=== PATIENT | female | born 1950 | race Caucasian/White ===

== ENCOUNTER 2016-10-08 17:33 | Observation (INO) | payer OTHER ==
[~2016-10-08] VITALS: Ht 162.6 cm; Wt 69.0 kg
[2016-10-08] VITALS (9 sets, daily range): BP systolic 150–186; BP diastolic 69–99; PULSE 70–78; RESP 16–20; TEMP 98–98.6; O2SAT 96–99
[~2016-10-08 17:33] MED LIST: CARV12.5 PO; DUONI NEB; ECASA PO; HYCO5UDC PO; NITR.4 SL; ZOCO40TA PO
[2016-10-08] MEDS ORDERED: SODIUM CHLORIDE 0.9% FLUSH 5 ML FLUSH IVF PRN ×2 (18:00→21:00)
[2016-10-08] MEDS ORDERED: ATOR40TA16 PO (18:02)
[2016-10-08] MEDS ORDERED: PATI1POW PO (18:02)
[2016-10-08] MEDS ORDERED: ALBU0.08 NEB (18:02)
[2016-10-08] MEDS ORDERED: CARV25TA PO (18:02)
[2016-10-08] MEDS ORDERED: CALC0.25 PO (18:02)
[2016-10-08] MEDS ORDERED: ASPI325T PO (18:02)
--- NOTE | 2016-10-08 18:39 | PD ---
HPI Chief Complaint: Neuro Symptoms/ Deficits Time Seen by Provider: 17:49 Travel History International Travel<30 days: No Contact w/Intl Traveler<30days: No Traveled to known affect area: No History of Present Illness HPI 66-year-old female with history of CAD, chronic renal insufficiency, COPD, osteoarthritis, hypertension, cardiomyopathy, here for evaluation of left arm and right leg weakness/numbness 2 days. The patient was started on a new medication for hyperkalemia. She believes her symptoms are secondary to this medication which she started 2 days ago. The patient is also describing pain in her left shoulder as well as right leg which is constant, moderate, worse with movement and palpation. She denies trauma. No fevers or chills. No chest pain or dyspnea. PFSH Past Medical History Hx Anticoagulant Therapy: Yes (325MG ASA) Arthritis: Yes Autoimmune Disease: No Cancer: No Cardiovascular Problems: Yes (HTN; LOGAN 2013) High Cholesterol: Yes Chemotherapy: No Congestive Heart Failure: Yes COPD: Yes Diminished Hearing: No Endocrine: No Genitourinary: Yes (kidney failure stage 4) Hypertension: Yes Immune Disorder: No Musculoskeletal: Yes Neurologic: No Psychiatric: No Reproductive: No Respiratory: Yes (COPD) Immunizations Current: Yes Myocardial Infarction: Yes (december 30, 2014) Radiation Therapy: No Renal Failure: Yes Tetanus Vaccination: Unknown Influenza Vaccination: Yes ?: Not Menopausal: Yes : 3 Para: 3 Ovarian Cysts: Yes Past Surgical History Gynecologic Surgery: Yes (OVARIES REMOVED) Other Surgery: Yes Social History Alcohol Use: No Tobacco Use: Yes (09/26 ppd) Substance Use: No Allergies-Medications (Allergen,Severity, Reaction): Coded Allergies: No Known Allergies (Verified , 10/08/16) Reported Meds & Prescriptions Reported Meds & Active Scripts Active Reported Albuterol Neb (Albuterol Sulfate) 2.5 Mg/3 Ml Neb 2.5 Mg NEB QID NEB Aspirin 325 Mg Tab 325 Mg PO DAILY Calcitriol 0.25 Mcg Cap 0.25 Mcg PO DAILY Atorvastatin (Atorvastatin Calcium) 40 Mg Tab 40 Mg PO HS Carvedilol 25 Mg Tab 25 Mg PO BID Veltassa (Patiromer Sorbitex Calcium) 8.4 Gm Pow 8.4 Mg PO WEEKLY Review of Systems Except as stated in HPI: all other systems reviewed are Neg Physical Exam Narrative GENERAL: Well-developed, well-nourished, elderly-appearing female, awake, alert , no acute distress. SKIN: Warm and dry. No rashes. HEAD: Atraumatic. Normocephalic. EYES: Pupils equal and round. No scleral icterus. No injection or drainage. ENT: Mucous membranes pink and dry. NECK: Trachea midline. No JVD. No nuchal rigidity. No midline vertebral step- off or tenderness. CARDIOVASCULAR: Regular rate and rhythm. RESPIRATORY: No accessory muscle use. Clear to auscultation. Breath sounds equal bilaterally. GASTROINTESTINAL: Abdomen soft, non-tender, nondistended. MUSCULOSKELETAL: No obvious deformities. No clubbing. No cyanosis. No edema. Moderate tenderness to left shoulder without warmth or erythema. There is also tenderness to the right knee and right hip without warmth or erythema. Normal range of passive motion in all joints and extremities, limited range of active motion in left shoulder and right hip/right knee secondary to pain/weakness. No midline vertebral step-off or tenderness. NEUROLOGICAL: Awake and alert. No obvious cranial nerve deficits. Normal speech. Significant weakness in left arm and right leg. Normal muscle strength in her right arm and right leg. PSYCHIATRIC: Appropriate mood and affect; insight and judgment normal. Data Data Last Documented VS Vital Signs Date Time Temp Pulse Resp B/P Pulse Ox O2 Delivery O2 Flow Rate FiO2 10/08/16 19:01 74 20 160/73 99 Room Air 10/08/16 17:39 98.6 Orders Electrocardiogram (10/08/16 17:54) Prothrombin Time / Inr (Pt) (10/08/16 17:54) Act Partial Throm Time (Ptt) (10/08/16 17:54) Complete Blood Count With Diff (10/08/16 17:54) Comprehensive Metabolic Panel (10/08/16 17:54) Creatine Kinase (Cpk) (10/08/16 17:54) Troponin I (10/08/16 17:54) Ct Brain W/O Iv Contrast(Rout) (10/08/16 17:54) Ecg Monitoring (10/08/16 17:54) Iv Access Insert/Monitor (10/08/16 17:54) Oximetry (10/08/16 17:54) Sodium Chloride 0.9% Flush (Ns Flush) (10/08/16 18:00) Shoulder, Complete (>2vws) (10/08/16 ) Hip, Uni(Ap&Lat) W Ap Pelvis (10/08/16 ) Knee, Complete (4vws) (10/08/16 ) Labs Laboratory Tests Test 10/08/16 18:35 White Blood Count 5.7 TH/MM3 Red Blood Count 3.22 MIL/MM3 Hemoglobin 10.0 GM/DL Hematocrit 29.4 % Mean Corpuscular Volume 91.3 FL Mean Corpuscular Hemoglobin 31.0 PG Mean Corpuscular Hemoglobin 33.9 % Concent Red Cell Distribution Width 11.7 % Platelet Count 282 TH/MM3 Mean Platelet Volume 6.9 FL Neutrophils (%) (Auto) 61.7 % Lymphocytes (%) (Auto) 25.2 % Monocytes (%) (Auto) 9.0 % Eosinophils (%) (Auto) 3.7 % Basophils (%) (Auto) 0.4 % Neutrophils # (Auto) 3.6 TH/MM3 Lymphocytes # (Auto) 1.4 TH/MM3 Monocytes # (Auto) 0.5 TH/MM3 Eosinophils # (Auto) 0.2 TH/MM3 Basophils # (Auto) 0.0 TH/MM3 CBC Comment DIFF FINAL Differential Comment Prothrombin Time 9.7 SEC Prothromb Time International 0.9 RATIO Ratio Activated Partial 25.6 SEC Thromboplast Time Sodium Level 137 MEQ/L Potassium Level 4.8 MEQ/L Chloride Level 105 MEQ/L Carbon Dioxide Level 21.9 MEQ/L Anion Gap 10 MEQ/L Blood Urea Nitrogen 42 MG/DL Creatinine 3.00 MG/DL Estimat Glomerular Filtration 16 ML/MIN Rate Random Glucose 100 MG/DL Calcium Level 8.0 MG/DL Total Bilirubin 0.3 MG/DL Aspartate Amino Transf 21 U/L (AST/SGOT) Alanine Aminotransferase 20 U/L (ALT/SGPT) Alkaline Phosphatase 171 U/L Total Creatine Kinase 101 U/L Troponin I LESS THAN 0.02 NG/ML Total Protein 7.6 GM/DL Albumin 3.2 GM/DL MDM Medical Decision Making Medical Screen Exam Complete: Yes Emergency Medical Condition: Yes Medical Record Reviewed: Yes Interpretation(s) EKG: Sinus, rate 72, left axis deviation, LBBB which is old Differential Diagnosis CVA, MS, electrolyte abnormality, osteoarthritis, septic arthritis not likely Narrative Course At approximately 7:00 PM at the end of my shift the patient was signed out to oncoming provider who will follow up with imaging studies and will disposition the patient. Toro Canada MD Oct 08, 2016 18:39
[2016-10-08 18:40] LABS: AUTOMATED NEUTROPHIL # 3.6 TH/MM3 (1.8-7.7); BASOPHIL % 0.4 % (0.0-2.0); EOSINOPHIL # 0.2 TH/MM3 (0-0.4); EOSINOPHIL % 3.7 % (0.0-4.0); HEMATOCRIT 29.4 % (35.0-46.0); HEMO FLAGS DIFF FINAL; LYMPH % 25.2 % (9.0-44.0); LYMPHOCYTE # 1.4 TH/MM3 (1.0-4.8); MEAN CELL VOLUME 91.3 FL (80.0-100.0); MEAN CORPUSCULAR HGB CONC 33.9 % (32.0-36.0); NEUT % 61.7 % (16.0-70.0); PLATELET COUNT 282 TH/MM3 (150-450); RED BLOOD COUNT 3.22 MIL/MM3 (4.00-5.30); RED CELL DISTRIBUTION WIDTH 11.7 % (11.6-17.2); WHITE BLOOD COUNT 5.7 TH/MM3 (4.0-11.0)
[2016-10-08 18:48] LABS: CHLORIDE 105 MEQ/L (98-107); POTASSIUM 4.8 MEQ/L (3.5-5.1); SODIUM (NA) 137 MEQ/L (136-145)
[2016-10-08 18:52] LABS: ANION GAP 10 MEQ/L (5-15); BICARBONATE 21.9 MEQ/L (21.0-32.0); BLOOD UREA NITROGEN 42 MG/DL (7-18)
[2016-10-08 18:53] LABS: APTT (PATIENT) 25.6 SEC (24.3-30.1); INTERNATIONAL NORMALIZED RATIO 0.9 RATIO; PROTHROMBIN TIME - PATIENT 9.7 SEC (9.8-11.6)
[2016-10-08 18:55] LABS: ALT (GPT) 20 U/L (10-53); AST (GOT) 21 U/L (15-37); GLOMERULAR FILTRATION RATE 16 ML/MIN (>89)
[2016-10-08 18:56] LABS: TOTAL BILIRUBIN ADULT 0.3 MG/DL (0.2-1.0)
[2016-10-08 18:58] LABS: ALKALINE PHOSPHATASE 171 U/L (45-117); CREATINE KINASE 101 U/L (26-192)
--- NOTE | 2016-10-08 18:58 | RADHPO ---
EXAM DATE/TIME: 10/08/2016 18:04 [facility] COMPARISON: No previous studies available for comparison. INDICATIONS : Right knee pain for two days. No known trauma. MEDICAL HISTORY : Venous insufficiency. SURGICAL HISTORY : None. ENCOUNTER: Initial ACUITY: 2 days PAIN SCORE: 5/10 LOCATION: Right knee. FINDINGS: There are degenerative changes evident with loss of articular cartilage in both the medial and latera l compartment. There is no evidence of joint effusion. Alignment is anatomic. A fracture is not ap preciated. CONCLUSION: Degenerative change without fracture. Breezy Corrigan MD FACR on October 08, 2016 at 18:39 Board Certified Radiologist. This report was verified electronically.
--- NOTE | 2016-10-08 19:00 | RADHPO ---
EXAM DATE/TIME: 10/08/2016 18:05 [facility] COMPARISON: No previous studies available for comparison. INDICATIONS : Right hip pain for two days. No known trauma. MEDICAL HISTORY : None. SURGICAL HISTORY : None. ENCOUNTER: Initial ACUITY: 2 days PAIN SCORE: 5/10 LOCATION: Right hip. FINDINGS: Examination of the right hip was performed with AP Pelvis. The primary and secondary trabecular christ kwabena of the femoral neck is intact. The hip joint is of normal width without significant sclerosis or bony hypertrophy. The acetabulum is grossly intact. CONCLUSION: Negative for fracture or dislocation. Followup in 7-10 days is suggested if symptoms persist.. Breezy Corrigan MD FACR on October 08, 2016 at 18:56 Board Certified Radiologist. This report was verified electronically.
--- NOTE | 2016-10-08 19:05 | RADHPO ---
EXAM DATE/TIME: 10/08/2016 18:10 [facility] COMPARISON: No previous studies available for comparison. INDICATIONS : Left shoulder pain for two days. No known trauma. MEDICAL HISTORY : None. SURGICAL HISTORY : None. ENCOUNTER: Initial ACUITY: 2 days PAIN SCORE: 8/10 LOCATION: Left shoulder. FINDINGS: Multiple view examination of the left shoulder demonstrates no evidence of fracture or dislocation. The glenohumeral and acromioclavicular joints are maintained. There is normal range of motion betwee n internal and external rotation. Bony mineralization is normal. CONCLUSION: Negative for fracture or dislocation. Followup in 7-10 days is suggested if symptoms persist. Breezy Corrigan MD FACR on October 08, 2016 at 18:59 Board Certified Radiologist. This report was verified electronically.
--- NOTE | 2016-10-08 19:28 | PD ---
Physical Exam Date Seen by Provider: Oct 08, 2016 Time Seen by Provider: 19:27 Narrative accepted in transfer of care from Dr Canada Data Data Last Documented VS Vital Signs Date Time Temp Pulse Resp B/P Pulse Ox O2 Delivery O2 Flow Rate FiO2 10/08/16 21:04 74 20 186/79 98 Room Air 10/08/16 17:39 98.6 Orders Electrocardiogram (10/08/16 17:54) Prothrombin Time / Inr (Pt) (10/08/16 17:54) Act Partial Throm Time (Ptt) (10/08/16 17:54) Complete Blood Count With Diff (10/08/16 17:54) Comprehensive Metabolic Panel (10/08/16 17:54) Creatine Kinase (Cpk) (10/08/16 17:54) Troponin I (10/08/16 17:54) Ct Brain W/O Iv Contrast(Rout) (10/08/16 17:54) Ecg Monitoring (10/08/16 17:54) Iv Access Insert/Monitor (10/08/16 17:54) Oximetry (10/08/16 17:54) Sodium Chloride 0.9% Flush (Ns Flush) (10/08/16 18:00) Shoulder, Complete (>2vws) (10/08/16 ) Hip, Uni(Ap&Lat) W Ap Pelvis (10/08/16 ) Knee, Complete (4vws) (10/08/16 ) Westergren Sedimentation Rate (10/08/16 20:44) Magnesium (Mg) (10/08/16 18:35) Admit Order (Ed Use Only) (10/08/16 ) ^ Saline Lock (10/08/16 20:57) Resp Oxygen [place] C Titrat 1-4 L (10/08/16 ) ^ Notify Dr: Other (10/08/16 20:57) Sodium Chloride 0.9% Flush (Ns Flush) (10/08/16 21:00) Sodium Chloride 0.9% Flush (Ns Flush) (10/08/16 21:00) Carvedilol (Coreg) (10/08/16 21:00) Labs Laboratory Tests Test 10/08/16 10/08/16 18:35 21:10 White Blood Count 5.7 TH/MM3 Red Blood Count 3.22 MIL/MM3 Hemoglobin 10.0 GM/DL Hematocrit 29.4 % Mean Corpuscular Volume 91.3 FL Mean Corpuscular Hemoglobin 31.0 PG Mean Corpuscular Hemoglobin 33.9 % Concent Red Cell Distribution Width 11.7 % Platelet Count 282 TH/MM3 Mean Platelet Volume 6.9 FL Neutrophils (%) (Auto) 61.7 % Lymphocytes (%) (Auto) 25.2 % Monocytes (%) (Auto) 9.0 % Eosinophils (%) (Auto) 3.7 % Basophils (%) (Auto) 0.4 % Neutrophils # (Auto) 3.6 TH/MM3 Lymphocytes # (Auto) 1.4 TH/MM3 Monocytes # (Auto) 0.5 TH/MM3 Eosinophils # (Auto) 0.2 TH/MM3 Basophils # (Auto) 0.0 TH/MM3 CBC Comment DIFF FINAL Differential Comment Erythrocyte Sedimentation Rate 69 mm/hr Prothrombin Time 9.7 SEC Prothromb Time International 0.9 RATIO Ratio Activated Partial 25.6 SEC Thromboplast Time Sodium Level 137 MEQ/L Potassium Level 4.8 MEQ/L Chloride Level 105 MEQ/L Carbon Dioxide Level 21.9 MEQ/L Anion Gap 10 MEQ/L Blood Urea Nitrogen 42 MG/DL Creatinine 3.00 MG/DL Estimat Glomerular Filtration 16 ML/MIN Rate Random Glucose 100 MG/DL Calcium Level 8.0 MG/DL Magnesium Level 2.5 MG/DL Total Bilirubin 0.3 MG/DL Aspartate Amino Transf 21 U/L (AST/SGOT) Alanine Aminotransferase 20 U/L (ALT/SGPT) Alkaline Phosphatase 171 U/L Total Creatine Kinase 101 U/L Troponin I LESS THAN 0.02 NG/ML Total Protein 7.6 GM/DL Albumin 3.2 GM/DL Urine Collection Type CLEAN CATCH Urine Color STRAW Urine Turbidity CLEAR Urine pH 6.0 Urine Specific [place] 1.007 Urine Protein NEG mg/dL Urine Glucose (UA) NEG mg/dL Urine Ketones NEG mg/dL Urine Occult Blood TRACE Urine Nitrite NEG Urine Bilirubin NEG Urine Leukocyte Esterase SMALL Urine WBC 3-5 /hpf Urine Squamous Epithelial 6-8 /hpf Cells Microscopic Urinalysis Comment CULT NOT INDICATED MDM Medical Record Reviewed: Yes Supervised Visit with MARISSA: No Differential Diagnosis accepted in transfer of care from Dr Canada; please refer to his dictation Narrative Course accepted in transfer of care from Dr Canada for pending Ct and patient disposition patient with 2-3 days of migratory pain and proximal upper and lower extremity weakness after beginning reportedly a new medication. Patient took one dose and started noticing symptoms has taken no further medical dictation and lab values here are identified to be grossly within normal range. Imaging study pending. At 8:34 PM on imaging studies and labs are resulted; no acute abnormalities identified; patient with chronic anemia and chronic renal insufficiency/chronic kidney disease that essentially unchanged from 03/07/16. Patient is here with migratory pain and weakness and paresthesias reportedly onset since starting new medication, Veltassa, prescribed by her provider with first dose being taken on Monday and symptoms reportedly beginning on . At 8:43 PM patient noticing some improvement of symptoms although still having pain in the left shoulder and right hip; consider polymyalgia rheumatica, myositis, atypical bursitis/synovitis, ms. Additional labs sed rate, ck, mag pendnig discussed with [facility] MD Physician Communication Physician Communication call placed to [facility] MD Dr Pineda--aware of recently added labs pending Diagnosis Primary Impression: Migratory pain Admitting Information Admitting Physician Requests: Observation Tanya Cooper MD Oct 08, 2016 19:28
--- NOTE | 2016-10-08 19:39 | RADHPO ---
EXAM DATE/TIME: 10/08/2016 19:19 [facility] COMPARISON: No previous studies available for comparison. INDICATIONS : Left arm weakness today. RADIATION DOSE: 59.45 CTDIvol (mGy) MEDICAL HISTORY : Myocardial infarction. Congestive heart failure. Hypertension. SURGICAL HISTORY : None. ENCOUNTER: Initial ACUITY: 1 day PAIN SCALE: 0/10 LOCATION: Bilateral head TECHNIQUE: Multiple contiguous axial images were obtained of the head. Using automated exposure control and adj ustment of the mA and/or kV according to patient size, radiation dose was kept as low as reasonably a chievable to obtain optimal diagnostic quality images. FINDINGS: CEREBRUM: The ventricles are normal for age. No evidence of midline shift, mass lesion, hemorrhage or acute in farction. No extra-axial fluid collections are seen. POSTERIOR FOSSA: The cerebellum and brainstem are intact. The 4th ventricle is midline. The cerebellopontine angle i s unremarkable. EXTRACRANIAL: The visualized portion of the orbits is intact. SKULL: The calvaria is intact. No evidence of skull fracture. CONCLUSION: Negative for acute process. Breezy Corrigan MD FACR on October 08, 2016 at 19:36 Board Certified Radiologist. This report was verified electronically.
[2016-10-08] MEDS ORDERED: SODIUM CHLORIDE 0.9% FLUSH 5 ML FLUSH IVF SCH (21:00)
[2016-10-08] MEDS ORDERED: CARVEDILOL 12.5 MG TAB PO ONE (21:00)
[2016-10-08 21:02] LABS: MAGNESIUM 2.5 MG/DL (1.5-2.5)
[2016-10-08] MEDS ORDERED: ACETAMINOPHEN/HYDROcodone 325 MG/7.5 MG TAB PO PRN (21:30)
[2016-10-08] MEDS ORDERED: ONDANSETRON HCL 4 MG/2 ML VIAL IVP PRN (21:30)
[2016-10-08] MEDS ORDERED: BISACODYL 10 MG SUPP PR PRN (21:30)
[2016-10-08] MEDS ORDERED: SODIUM CHLORIDE 0.9% FLUSH 5 ML FLUSH FLUSH PRN (21:30)
[2016-10-08] MEDS ORDERED: ACETAMINOPHEN 325 MG TAB PO PRN (21:30)
[2016-10-08] MEDS ORDERED: ACETAMINOPHEN/HYDROcodone 325 MG/5 MG TAB PO PRN (21:30)
[2016-10-08 21:37] LABS: BLOOD, URINE TRACE (NEG); GLUCOSE,URINE NEG (NEG); KETONE, URINE NEG (NEG); NITRITE,URINE NEG (NEG)
[2016-10-08 21:44] LABS: METHOD OF COLLECTION CLEAN CATCH; URINE COLOR STRAW (YELLW/STRAW)
[2016-10-08 21:46] LABS: COMMENT (UR) CULT NOT INDICATED; CULTURE IF INDICATED CULT NOT INDICATED
[2016-10-08] MEDS: SODIUM CHLOR 0.9% 1000 ML INJ 1,000 ML IV SCH (22:53)
[2016-10-09 01:18] VITALS: BP 157/69; PULSE 71; RESP 20; TEMP 97.7; O2SAT 96
[2016-10-09 05:02] VITALS: BP 167/88; PULSE 70; RESP 14; TEMP 98; O2SAT 94
[2016-10-09 07:59] LABS: AUTOMATED NEUTROPHIL # 2.3 TH/MM3 (1.8-7.7); BASOPHIL % 0.3 % (0.0-2.0); EOSINOPHIL # 0.2 TH/MM3 (0-0.4); HEMATOCRIT 27.3 % (35.0-46.0); HEMO FLAGS DIFF FINAL; LYMPH % 27.9 % (9.0-44.0); LYMPHOCYTE # 1.1 TH/MM3 (1.0-4.8); MEAN CELL VOLUME 92.3 FL (80.0-100.0); MEAN CORPUSCULAR HEMOGLOBIN 30.7 PG (27.0-34.0); MEAN CORPUSCULAR HGB CONC 33.3 % (32.0-36.0); MONO % 11.5 % (0.0-8.0); NEUT % 56.3 % (16.0-70.0); PLATELET COUNT 225 TH/MM3 (150-450); RED BLOOD COUNT 2.96 MIL/MM3 (4.00-5.30); RED CELL DISTRIBUTION WIDTH 11.8 % (11.6-17.2); WHITE BLOOD COUNT 4.1 TH/MM3 (4.0-11.0)
[2016-10-09 08:00] VITALS: BP 168/82; PULSE 70; RESP 18; TEMP 96.8; O2SAT 95
[2016-10-09 08:03] LABS: CHLORIDE 110 MEQ/L (98-107); POTASSIUM 4.7 MEQ/L (3.5-5.1); SODIUM (NA) 140 MEQ/L (136-145)
[2016-10-09 08:06] LABS: ANION GAP 9 MEQ/L (5-15); BICARBONATE 21.2 MEQ/L (21.0-32.0); BLOOD UREA NITROGEN 40 MG/DL (7-18)
[2016-10-09] MEDS: SODIUM CHLOR 0.9% 1000 ML INJ 1,000 ML IV SCH (08:08)
[2016-10-09 08:09] LABS: ALT (GPT) 18 U/L (10-53)
[2016-10-09 08:10] LABS: AST (GOT) 15 U/L (15-37); GLOMERULAR FILTRATION RATE 18 ML/MIN (>89)
[2016-10-09 08:11] LABS: TOTAL BILIRUBIN ADULT 0.4 MG/DL (0.2-1.0)
[2016-10-09 08:12] LABS: ALKALINE PHOSPHATASE 143 U/L (45-117)
[2016-10-09] MEDS ORDERED: ASPIRIN 325 MG TAB PO SCH (09:00)
[2016-10-09] MEDS ORDERED: CARVEDILOL 12.5 MG TAB PO SCH (09:00)
[2016-10-09] MEDS ORDERED: SODIUM CHLORIDE 0.9% FLUSH 5 ML FLUSH FLUSH SCH (09:00)
[2016-10-09 12:00] VITALS: BP 157/70; PULSE 72; RESP 18; TEMP 97; O2SAT 97
--- NOTE | 2016-10-09 13:36 | EKG ---
Date Performed: 10/08/2016 Time Performed: 18:18:04 PTAGE: 66 years EKG: Sinus rhythm Left axis deviation Left bundle branch block Compared to prior tracing no significant change Abnorma l ECG PREVIOUS TRACING : 03/07/2016 16.18 DOCTOR: Gianfranco Shah Interpretating Date/Time 10/09/2016 13:34:50
--- NOTE | 2016-10-09 15:24 | HHI.DCPOC ---
Discharge Care Plan Diagnosis: (1) Neurologic abnormality Goals to Promote Your Health * To prevent worsening of your condition and complications * To maintain your health at the optimal level Directions to Meet Your Goals Take your medications as prescribed Follow your dietary instruction Follow activity as directed Keep your appointments as scheduled Take your immunizations and boosters as scheduled If your symptoms worsen call your PCP, if no PCP go to Urgent Care Center or Emergency Room Smoking is Dangerous to Your Health. Avoid second hand smoke Call the 24-hour hour crisis hotline for domestic abuse at Lisa Bates MD Oct 09, 2016 15:24
--- NOTE | 2016-10-09 15:29 | HHI.HP ---
[facility] Service [facility] Primary Care Physician Unknown Admission Diagnosis migratory weakness Diagnoses: Chief Complaint: Paresthesias Travel History International Travel<30 Days: No Contact w/Intl Traveler <30 Da: No Traveled to Known Affected Are: No History of Present Illness Patient is a 66-year-old female with a history of chronic disease and hypertension. Patient had recent start of potassium medication per her report and noted that she started having numbness and tickling in her arms and legs. It started about 4 days ago and seemed to not subside so she came to the emergency room for further evaluation. Here her lecture lites are normal. Symptoms have actually resolved since she discontinued her medication. She does have no fevers or chills or pain complaint. She was seen by physical therapy and recommended for home health care due to some evidence of right leg weakness however the patient does not want to continue with home healthcare one to follow-up with her primary care doctor. Images here reviewed by me include hip shoulder and knee which not show any acute processes. CT of the brain was done without any acute intracranial disease. Patient with a family history of stroke but no personal signs and symptoms are consistent with stroke at this time. Patient will be discharged home to follow-up with her primary care physician Review of Systems Constitutional: DENIES: Diaphoretic episodes, Fatigue, Fever, Weight gain, Weight loss, Chills, Dizziness, Change in appetite, Night Sweats Endocrine: DENIES: Abnorml menstrual pattern, Heat/cold intolerance, Polydipsia , Polyuria, Polyphagia Eyes: DENIES: Blurred vision, Diplopia, Eye inflammation, Eye pain, Vision loss , Photosensitivity, Double Vision Ears, nose, mouth, throat: DENIES: Tinnitus, Hearing loss, Vertigo, Nasal discharge, Oral lesions, Throat pain, Hoarseness, Ear Pain, Running Nose, Epistaxis, Sinus Pain, Toothache, Odynophagia Respiratory: DENIES: Apneas, Cough, Snoring, Wheezing, Hemoptysis, Sputum production, Shortness of breath Cardiovascular: DENIES: Chest pain, Palpitations, Syncope, Dyspnea on Exertion , PND, Lower Extremity Edema, Orthopnea, Claudication Genitourinary: DENIES: Abnormal vaginal bleeding, Dysmenorrhea, Dyspareunia, Sexual dysfunction, Urinary frequency, Urinary incontinence, Urgency, Hematuria , Dysuria, Nocturia, Vaginal discharge Musculoskeletal: DENIES: Joint pain, Muscle aches, Stiffness, Joint Swelling, Back pain, Neck pain Integumentary: DENIES: Abnormal pigmentation, Pruritus, Rash, Nail changes, Breast masses, Breast skin changes, Nipple discharge Hematologic/lymphatic: DENIES: Bruising, Lymphadenopathy Immunologic/allergic: DENIES: Eczema, Urticaria Neurologic: COMPLAINS OF: Paresthesias, DENIES: Abnormal gait, Headache, Localized weakness, Seizures, Speech Problems, Tremor, Poor Balance Psychiatric: DENIES: Anxiety, Confusion, Mood changes, Depression, Hallucinations, Agitation, Suicidal Ideation, Homicidal Ideation, Delusions Past Family Social History Past Medical History Chronic kidney disease stage IV Hypertension Tobacco dependency Hyperlipidemia Hypertension COPD Past Surgical History Tubal ligation Reported Medications Reviewed in the medical record, new potassium medication per patient which she discontinued after her symptoms started Allergies: Coded Allergies: No Known Allergies (Verified , 10/08/16) Active Ordered Medications Reviewed in the medical record Family History Sister had a stroke Hasn't had a stroke Social History Smokes half a pack of tobacco daily, lives independently Physical Exam Vital Signs Vital Signs Date Time Temp Pulse Resp B/P Pulse Ox O2 Delivery O2 Flow Rate FiO2 10/09/16 12:00 97.0 72 18 157/70 97 10/09/16 08:00 96.8 70 18 168/82 95 10/09/16 08:00 95 21 10/09/16 05:02 98.0 70 14 167/88 94 10/09/16 01:18 97.7 71 20 157/69 96 10/08/16 23:40 70 10/08/16 23:34 98.0 78 19 170/83 97 10/08/16 22:34 98 21 10/08/16 22:19 72 20 150/69 96 Room Air 10/08/16 21:04 74 20 186/79 98 Room Air 10/08/16 21:00 74 20 186/79 98 Room Air 10/08/16 19:01 74 20 160/73 99 Room Air 10/08/16 18:54 98 Room Air 10/08/16 18:36 20 10/08/16 17:39 98.6 78 16 168/99 98 Physical Exam GENERAL: This is a well-nourished, well-developed patient, in no apparent distress. SKIN: No rashes, ecchymoses or lesions. Cool and dry. HEAD: Atraumatic. Normocephalic. No temporal or scalp tenderness. EYES: Pupils equal round and reactive. Extraocular motions intact. No scleral icterus. No injection or drainage. ENT: Nose without bleeding, purulent drainage or septal hematoma. Throat without erythema, tonsillar hypertrophy or exudate. Uvula midline. Airway patent. NECK: Trachea midline. No JVD or lymphadenopathy. Supple, nontender, no meningeal signs. CARDIOVASCULAR: Regular rate and rhythm without murmurs, gallops, or rubs. RESPIRATORY: Clear to auscultation. Breath sounds equal bilaterally. No wheezes , rales, or rhonchi. GASTROINTESTINAL: Abdomen soft, non-tender, nondistended. No hepato-splenomegaly , or palpable masses. No guarding. MUSCULOSKELETAL: Extremities without clubbing, cyanosis, or edema. No joint tenderness, effusion, or edema noted. No calf tenderness. Negative Homans sign bilaterally. NEUROLOGICAL: Awake and alert. Cranial nerves II through XII intact. Motor and sensory grossly within normal limits. Five out of 5 muscle strength in all muscle groups. Normal speech. Laboratory Laboratory Tests Test 10/08/16 10/08/16 10/09/16 18:35 21:10 07:15 White Blood Count 5.7 4.1 Red Blood Count 3.22 2.96 Hemoglobin 10.0 9.1 Hematocrit 29.4 27.3 Mean Corpuscular Volume 91.3 92.3 Mean Corpuscular Hemoglobin 31.0 30.7 Mean Corpuscular Hemoglobin 33.9 33.3 Concent Red Cell Distribution Width 11.7 11.8 Platelet Count 282 225 Mean Platelet Volume 6.9 7.5 Neutrophils (%) (Auto) 61.7 56.3 Lymphocytes (%) (Auto) 25.2 27.9 Monocytes (%) (Auto) 9.0 11.5 Eosinophils (%) (Auto) 3.7 4.0 Basophils (%) (Auto) 0.4 0.3 Neutrophils # (Auto) 3.6 2.3 Lymphocytes # (Auto) 1.4 1.1 Monocytes # (Auto) 0.5 0.5 Eosinophils # (Auto) 0.2 0.2 Basophils # (Auto) 0.0 0.0 CBC Comment DIFF FINAL DIFF FINAL Differential Comment Erythrocyte Sedimentation Rate 69 Prothrombin Time 9.7 Prothromb Time International 0.9 Ratio Activated Partial 25.6 Thromboplast Time Sodium Level 137 140 Potassium Level 4.8 4.7 Chloride Level 105 110 Carbon Dioxide Level 21.9 21.2 Anion Gap 10 9 Blood Urea Nitrogen 42 40 Creatinine 3.00 2.70 Estimat Glomerular Filtration 16 18 Rate Random Glucose 100 82 Calcium Level 8.0 8.1 Magnesium Level 2.5 Total Bilirubin 0.3 0.4 Aspartate Amino Transf 21 15 (AST/SGOT) Alanine Aminotransferase 20 18 (ALT/SGPT) Alkaline Phosphatase 171 143 Total Creatine Kinase 101 Troponin I LESS THAN 0.02 Total Protein 7.6 6.7 Albumin 3.2 2.8 Urine Collection Type CLEAN CATCH Urine Color STRAW Urine Turbidity CLEAR Urine pH 6.0 Urine Specific [place] 1.007 Urine Protein NEG Urine Glucose (UA) NEG Urine Ketones NEG Urine Occult Blood TRACE Urine Nitrite NEG Urine Bilirubin NEG Urine Leukocyte Esterase SMALL Urine WBC 3-5 Urine Squamous Epithelial 6-8 Cells Microscopic Urinalysis Comment CULT NOT INDICATED Result Diagram: 10/09/16 0715 10/09/1615 Assessment and Plan Problem List: (1) Neurologic abnormality ICD Code: R29.818 Status: Acute Plan: Appears resolved at this time. Continue with supportive care. Home health physical therapy was recommended to this patient but she declined this initiative and loop of family care and this is discussed with physical therapy Patient will continue with her blood pressure and COPD medications. She is advised to discontinue tobacco Assessment and Plan Chronic kidney disease, hypertension remained stable Discharge home Activity unrestricted Diet renal Follow-up PCP in 1 week Lisa Bates MD Oct 09, 2016 15:29
[2016-10-09] MEDS ORDERED: ATORVASTATIN 40 MG TAB PO SCH (21:00)
== END 2016-10-09 16:54 | disposition home or self-care (01) ==
LOC: PHEFT 17:33 → PHEDA 21:10 → UNDOADMOB 21:10 → PHEDA 23:24 → PH3B 23:24 → UNDODISOB 10-09 16:54
PROVIDERS: ADMIT Hospitalist; ATTEND Hospitalist
DX: R29.818 Other symptoms and signs involving the nervous system (principal); I25.10 Atherosclerotic heart disease of native coronary artery without angina pectoris; I42.9 Cardiomyopathy, unspecified; I25.2 Old myocardial infarction; I12.9 Hypertensive chronic kidney disease with stage 1 through stage 4 chronic kidney disease, or unspecified chronic kidney disease; N18.4 Chronic kidney disease, stage 4 (severe); E87.5 Hyperkalemia; E78.5 Hyperlipidemia, unspecified; R94.31 Abnormal electrocardiogram [ECG] [EKG]; E78.00 Pure hypercholesterolemia, unspecified; J44.9 Chronic obstructive pulmonary disease, unspecified; M19.90 Unspecified osteoarthritis, unspecified site; Z72.0 Tobacco use; Z82.3 Family history of stroke
CPT/HCPCS: 70450; 73030; 73502; 73564; 80053; 81001; 82550; 83735; 84484; 85025; 85610; 85652; 85730; 93005; 97162; 99285; G0378; G8987; G8988; J7030

== ENCOUNTER 2016-10-14 17:12 | Emergency (ER) | payer OTHER ==
[~2016-10-14] VITALS: Ht 165.1 cm; Wt 66.0 kg
[~2016-10-14 17:12] MED LIST changes: +ALBU0.08 NEB; +ASPI325T PO; +ATOR40TA16 PO; +CALC0.25 PO; -CARV12.5 PO; +CARV25TA PO; -DUONI NEB; -ECASA PO; -HYCO5UDC PO; -NITR.4 SL; +PATI1POW PO; -ZOCO40TA PO
[2016-10-14 17:19] VITALS: BP 144/74; PULSE 77; RESP 16; TEMP 98.8; O2SAT 99
[2016-10-14 18:42] LABS: AUTOMATED NEUTROPHIL # 3.4 TH/MM3 (1.8-7.7); BASOPHIL # 0.2 TH/MM3 (0-0.2); BASOPHIL % 4.2 % (0.0-2.0); EOSINOPHIL # 0.2 TH/MM3 (0-0.4); EOSINOPHIL % 3.8 % (0.0-4.0); HEMATOCRIT 28.4 % (35.0-46.0); HEMO FLAGS DIFF FINAL; LYMPH % 19.8 % (9.0-44.0); MEAN CELL VOLUME 90.9 FL (80.0-100.0); MEAN CORPUSCULAR HEMOGLOBIN 30.9 PG (27.0-34.0); MEAN CORPUSCULAR HGB CONC 33.9 % (32.0-36.0); MONO % 8.4 % (0.0-8.0); NEUT % 63.8 % (16.0-70.0); PLATELET COUNT 253 TH/MM3 (150-450); RED BLOOD COUNT 3.12 MIL/MM3 (4.00-5.30); RED CELL DISTRIBUTION WIDTH 11.4 % (11.6-17.2); WHITE BLOOD COUNT 5.2 TH/MM3 (4.0-11.0)
--- NOTE | 2016-10-14 18:43 | PD ---
HPI Chief Complaint: Musculoskeletal Complaint Time Seen by Provider: 18:37 Travel History International Travel<30 days: No Contact w/Intl Traveler<30days: No Traveled to known affect area: No History of Present Illness HPI Patient is a 66-year-old female who presents emergency for evaluation of body aches and joint pain. Patient states that prior to 8 days ago she felt fine and was able to ambulate and get around without difficulty. Since that time she 's had increasing joint pain and tenderness. She reports being evaluated in the hospital approximately one week ago for the same complaint, at that time was attributed potassium medication, which has been discontinued since then. She denies any fever, chills or nausea, vomiting, chest pain or shortness of breath. She states that her primary doctor ordered blood work but she is in too much pain to go to the lab. Patient presented to the emergency department via EMS. PFSH Past Medical History Hx Anticoagulant Therapy: Yes (325MG ASA) Arthritis: Yes Autoimmune Disease: No Blood Disorders: No Anxiety: No Depression: Yes Cancer: No Cardiovascular Problems: Yes (HTN; LOGAN 2013) High Cholesterol: Yes Chemotherapy: No Congestive Heart Failure: Yes COPD: Yes Diminished Hearing: No Endocrine: No Genitourinary: Yes (kidney failure stage 4) Hypertension: Yes Immune Disorder: No Musculoskeletal: Yes Neurologic: No Psychiatric: No Reproductive: No Respiratory: Yes (COPD) Immunizations Current: Yes Myocardial Infarction: Yes (december 30, 2014) Radiation Therapy: No Renal Failure: Yes Menopausal: Yes : 3 Para: 3 Ovarian Cysts: Yes Past Surgical History Gynecologic Surgery: Yes (OVARIES REMOVED) Other Surgery: Yes Social History Alcohol Use: No Tobacco Use: Yes (2 ppd) Substance Use: No Allergies-Medications (Allergen,Severity, Reaction): Coded Allergies: No Known Allergies (Verified , 10/14/16) Reported Meds & Prescriptions Reported Meds & Active Scripts Active Walker with Front Wheels (Device) 1 Mis Mis 1 Ea .ROUTE DIRECTED Prednisone 20 Mg Tab 20 Mg PO DAILY 10 Days Reported Albuterol Neb (Albuterol Sulfate) 2.5 Mg/3 Ml Neb 2.5 Mg NEB QID NEB Aspirin 325 Mg Tab 325 Mg PO DAILY Calcitriol 0.25 Mcg Cap 0.25 Mcg PO DAILY Atorvastatin (Atorvastatin Calcium) 40 Mg Tab 40 Mg PO HS Carvedilol 25 Mg Tab 25 Mg PO BID [place] (Patiromer Sorbitex Calcium) 8.4 Gm Pow 8.4 Mg PO WEEKLY Review of Systems Except as stated in HPI: all other systems reviewed are Neg General / Constitutional: No: Fever, Chills HENT: No: Headaches Cardiovascular: No: Chest Pain or Discomfort Respiratory: No: Shortness of Breath Gastrointestinal: No: Abdominal Pain Musculoskeletal: Positive: Myalgias, Arthralgias, Limited ROM, Edema, Pain Physical Exam Narrative GENERAL: Thin, well-developed, elderly female. Appears uncomfortable , in no acute distress. SKIN: Warm and dry. HEAD: Atraumatic. Normocephalic. EYES: Pupils equal and round. No scleral icterus. No injection or drainage. ENT: No nasal bleeding or discharge. Mucous membranes pink and moist. NECK: Trachea midline. No JVD. CARDIOVASCULAR: Regular rate and rhythm. No murmur appreciated. RESPIRATORY: No accessory muscle use. Clear to auscultation. Breath sounds equal bilaterally. GASTROINTESTINAL: Abdomen soft, non-tender, nondistended. Hepatic and splenic margins not palpable. MUSCULOSKELETAL: Tenderness to palpation in right ankle, right knee, shoulders, left hip. Decreased range of motion left shoulder, patient is unable to lift right leg off of bed. 5/5 muscle strength in bilateral feet in regards to flexion and extension. 4/5 reworker strength in upper extremities area is neurovascularly intact. NEUROLOGICAL: Awake and alert. No obvious cranial nerve deficits. Normal speech. PSYCHIATRIC: Appropriate mood and affect; insight and judgment normal. Data Data Last Documented VS Vital Signs Date Time Temp Pulse Resp B/P Pulse Ox O2 Delivery O2 Flow Rate FiO2 10/14/16 21:05 84 16 156/91 95 Room Air 10/14/16 17:19 98.8 Orders Westergren Sedimentation Rate (10/14/16 18:25) C-Reactive Protein (Crp) (10/14/16 18:25) Complete Blood Count With Diff (10/14/16 18:25) Basic Metabolic Panel (Bmp) (10/14/16 18:25) Iv Access Insert/Monitor (10/14/16 18:25) Methylprednisolone So Succ Inj (Solumedr (10/14/16 18:45) Urinalysis - C+S If Indicated (10/14/16 19:57) Urine Culture (1/20/17 20:00) Labs Laboratory Tests Test 10/14/16 10/14/16 10/14/16 18:30 18:55 20:00 White Blood Count 5.2 TH/MM3 Red Blood Count 3.12 MIL/MM3 Hemoglobin 9.6 GM/DL Hematocrit 28.4 % Mean Corpuscular Volume 90.9 FL Mean Corpuscular Hemoglobin 30.9 PG Mean Corpuscular Hemoglobin 33.9 % Concent Red Cell Distribution Width 11.4 % Platelet Count 253 TH/MM3 Mean Platelet Volume 7.7 FL Neutrophils (%) (Auto) 63.8 % Lymphocytes (%) (Auto) 19.8 % Monocytes (%) (Auto) 8.4 % Eosinophils (%) (Auto) 3.8 % Basophils (%) (Auto) 4.2 % Neutrophils # (Auto) 3.4 TH/MM3 Lymphocytes # (Auto) 1.0 TH/MM3 Monocytes # (Auto) 0.4 TH/MM3 Eosinophils # (Auto) 0.2 TH/MM3 Basophils # (Auto) 0.2 TH/MM3 CBC Comment DIFF FINAL Differential Comment Erythrocyte Sedimentation Rate 101 mm/hr Sodium Level 136 MEQ/L Potassium Level 4.6 MEQ/L Chloride Level 105 MEQ/L Carbon Dioxide Level 21.2 MEQ/L Anion Gap 10 MEQ/L Blood Urea Nitrogen 44 MG/DL Creatinine 3.00 MG/DL Estimat Glomerular Filtration 16 ML/MIN Rate Random Glucose 110 MG/DL Calcium Level 8.5 MG/DL C-Reactive Protein 8.30 MG/DL Urine Collection Type CLEAN CATCH Urine Color STRAW Urine Turbidity CLEAR Urine pH 5.5 Urine Specific Tebbetts 1.007 Urine Protein NEG mg/dL Urine Glucose (UA) NEG mg/dL Urine Ketones NEG mg/dL Urine Occult Blood TRACE Urine Nitrite NEG Urine Bilirubin NEG Urine Leukocyte Esterase SMALL Urine RBC 0-3 /hpf Urine WBC 3-5 /hpf Urine WBC Clumps RARE Urine Squamous Epithelial 0-5 /hpf Cells Urine Bacteria RARE /hpf Microscopic Urinalysis Comment CULTURE INDICATED Urine Collection Time 1999 [facility] Medical Decision Making Medical Screen Exam Complete: Yes Emergency Medical Condition: Yes Medical Record Reviewed: Yes Interpretation(s) Vital Signs Date Time Temp Pulse Resp B/P Pulse Ox O2 Delivery O2 Flow Rate FiO2 10/14/16 17:19 98.8 77 16 144/74 99 Differential Diagnosis Polymyalgia rheumatica versus lupus versus autoimmune disease versus fibromyalgia versus arthritis versus other Narrative Course Patient is a 66-year-old female who presented to emergency for reevaluation of widespread joint pain has gotten progressively worse over the last 8 days since its initiation. Patient states that she had previously been fairly active and able to take care for self. She was hospitalized on 10/08/16 with the same complaint, initially at that time was attributed to medication side effect. Patient stopped the medication over a week ago and continues to have the symptoms. Her sedimentation rate on the was 61, her sedimentation rate was reassessed today at 101, a CRP at 8.3. This along with her physical presentation would lead to the a likely diagnosis of polymyalgia rheumatica. Was given a dose of IV corticosteroids in the emergency department and reports moderate improvement in her symptoms. Patient is to follow-up with her primary doctor early next week. She was given a lab slip by her primary doctor to assess for polymyalgia rheumatica as well as lupus. She was encouraged to have this lab work performed. She was encouraged to return to emergency department for any new or worsening symptoms. Patient was given a prescription for a walker because she states she gave hers to her friend. She was encouraged to use her walker to avoid falls. Patient and family members verbalized understanding of discharge instructions as well as need for close follow-up with her primary doctor. Patient is stable for discharge. CBC is stable, chemistry with elevated BUN and creatinine which is stable compared to prior. Urinalysis with white blood cells and bacteria, culture pending. We'll defer treatment for possible urinary tract infection until culture results. Patient is asymptomatic. Patient is encouraged to maintain adequate fluid intake. Diagnosis Primary Impression: Polymyalgia rheumatica Referrals: Primary Care Physician 1 week Patient Instructions: General Instructions, Polymyalgia Rheumatica (ED) Additional Instructions: Follow-up with her primary doctor within 1 week Take medications as directed Return to emergency department data the for any new or worsening symptoms Med/Other Pt SpecificInfo: Prescription(s) given Scripts Walker with Front Wheels 1 Mis Mis #1 EA .ROUTE DIRECTED Ref 0 Prov:Park Segura 10/14/16 Prednisone 20 Mg Tab20 Mg PO DAILY 10 Days Ref 0 Prov:Park Segura 10/14/16 Disposition: 01 DISCHARGE HOME Condition: Stable Park Segura Oct 14, 2016 18:43
[2016-10-14] MEDS ORDERED: methylPREDNISolone SOD SUCC 125 MG/2 ML VIAL IV PUSH ONE (18:45)
[2016-10-14 19:11] LABS: POTASSIUM 4.6 MEQ/L (3.5-5.1)
[2016-10-14 19:15] LABS: BICARBONATE 21.2 MEQ/L (21.0-32.0)
[2016-10-14 20:09] LABS: BLOOD, URINE TRACE (NEG); GLUCOSE,URINE NEG (NEG); KETONE, URINE NEG (NEG); NITRITE,URINE NEG (NEG); PH, URINE 5.5 (5.0-8.5)
[2016-10-14 20:14] LABS: METHOD OF COLLECTION CLEAN CATCH; URINE COLOR STRAW (YELLW/STRAW)
[2016-10-14 20:16] LABS: BACTERIA, URINE RARE /hpf; COMMENT (UR) CULTURE INDICATED; CULTURE IF INDICATED CULTURE INDICATED; RBC, URINE 0-3 /hpf (0-3); SQUAMOUS EPITHELIAL CELL URINE 0-5 /hpf (0-5)
[2016-10-14 21:05] VITALS: BP 156/91; PULSE 84; RESP 16; O2SAT 95
[2016-10-14] MEDS ORDERED: PRED50 PO (21:06)
[2016-10-14] MEDS ORDERED: PRED20 PO ×2 (21:06→21:08)
[2016-10-14] MEDS ORDERED: WALKER WHEELS/F1 MIS (21:10)
== END 2016-10-14 21:20 | disposition home or self-care (01) ==
LOC: PHEFT 17:12
DX: M35.3 Polymyalgia rheumatica (principal); I10 Essential (primary) hypertension; E78.00 Pure hypercholesterolemia, unspecified; J44.9 Chronic obstructive pulmonary disease, unspecified; F17.210 Nicotine dependence, cigarettes, uncomplicated; Z79.01 Long term (current) use of anticoagulants; R82.90 Unspecified abnormal findings in urine
CPT/HCPCS: 80048; 81001; 85025; 85652; 86140; 87086; 96374; 99283; J2930

== ENCOUNTER 2017-03-08 19:33 | Emergency (ER) | payer OTHER ==
[~2017-03-08] VITALS: Ht 165.1 cm; Wt 65.0 kg
[~2017-03-08 19:33] MED LIST changes: +PRED20 PO; +WALKER WHEELS/F1 MIS
[2017-03-08 19:50] VITALS: BP 133/62; PULSE 68; RESP 20; TEMP 97.9; O2SAT 98
[2017-03-08] MEDS ORDERED: VITA100064 PO (19:57)
--- NOTE | 2017-03-08 20:02 | PD ---
HPI Chief Complaint: General Weakness Time Seen by Provider: 19:53 Travel History International Travel<30 days: No Contact w/Intl Traveler<30days: No Traveled to known affect area: No History of Present Illness HPI Is a 67-year-old woman who presents to the emergency department complaining of a near syncopal episode. States she was playing cards and she had the abrupt onset of weakness and lightheadedness. Her friends helped her sit on the couch with a report that she sort of what her head fall back and was not really responding. Patient states she remembers everything that happened but just felt too weak to respond. After that she had some nausea and vomiting. No chest pain. No shortness of breath. She has a history of similar episodes in the past. She feels back to normal now and really didn't want to come to the hospital but was encouraged by her friends. She has extensive past medical history. She has known carotid disease that is reportedly inoperable at this point due to chronic kidney disease. No complaints now. History Past Medical History Narrative Medical CAD, history of [place] COPD Chronic kidney disease Carotid artery disease Hypertension and hyperlipidemia Vitamin D deficiency History of polymyalgia rheumatica Active tobacco use Menopausal: Yes : 3 Para: 3 Social History Alcohol Use: No Tobacco Use: Yes (1/2 ppd) Allergies-Medications (Allergen,Severity, Reaction): Coded Allergies: No Known Allergies (Verified , 03/08/17) Reported Meds & Prescriptions Reported Meds & Active Scripts Active Walker with Front Wheels (Device) 1 Mis Mis 1 Ea .ROUTE DIRECTED Reported Vitamin D (Cholecalciferol) 1,000 Unit Tab 5,000 Units PO DAILY Albuterol Neb (Albuterol Sulfate) 2.5 Mg/3 Ml Neb 2.5 Mg NEB QID NEB Aspirin 325 Mg Tab 325 Mg PO DAILY Calcitriol 0.25 Mcg Cap 0.25 Mcg PO DAILY Atorvastatin (Atorvastatin Calcium) 40 Mg Tab 40 Mg PO HS Carvedilol 25 Mg Tab 25 Mg PO BID Review of Systems Except as stated in HPI: all other systems reviewed are Neg Physical Exam Narrative GENERAL: Well-appearing 67-year-old woman, no acute distress. SKIN: Focused skin assessment warm/dry. HEAD: Atraumatic. Normocephalic. EYES: Pupils equal and round. No scleral icterus. No injection or drainage. ENT: No nasal bleeding or discharge. Mucous membranes pink and moist. NECK: Trachea midline. No JVD. CARDIOVASCULAR: Regular rate and rhythm. No murmur appreciated. RESPIRATORY: No accessory muscle use. Clear to auscultation. Breath sounds equal bilaterally. GASTROINTESTINAL: Abdomen soft, non-tender, nondistended. Hepatic and splenic margins not palpable. MUSCULOSKELETAL: No obvious deformities. No clubbing. No cyanosis. No edema. NEUROLOGICAL: Awake and alert. No obvious cranial nerve deficits. Motor grossly within normal limits. Normal speech. PSYCHIATRIC: Appropriate mood and affect; insight and judgment normal. Data Data Last Documented VS Vital Signs Date Time Temp Pulse Resp B/P Pulse Ox O2 Delivery O2 Flow Rate FiO2 03/08/17 19:50 97.9 68 20 133/62 98 Orders Complete Blood Count With Diff (03/08/17 19:53) Comprehensive Metabolic Panel (03/08/17 19:53) Troponin I (03/08/17 19:53) Urinalysis - C+S If Indicated (03/08/17 19:53) Electrocardiogram (03/08/17 ) Chest, Single Ap (03/08/17 ) Iv Access Insert/Monitor (03/08/17 19:53) Sodium Chlorid 0.9% 500 Ml Inj (Ns 500 M (03/08/17 20:15) Labs Laboratory Tests Test 03/08/17 19:58 White Blood Count 4.6 TH/MM3 Red Blood Count 3.24 MIL/MM3 Hemoglobin 9.9 GM/DL Hematocrit 29.4 % Mean Corpuscular Volume 90.6 FL Mean Corpuscular Hemoglobin 30.5 PG Mean Corpuscular Hemoglobin 33.7 % Concent Red Cell Distribution Width 12.2 % Platelet Count 265 TH/MM3 Mean Platelet Volume 7.4 FL Neutrophils (%) (Auto) 58.8 % Lymphocytes (%) (Auto) 28.2 % Monocytes (%) (Auto) 7.5 % Eosinophils (%) (Auto) 4.2 % Basophils (%) (Auto) 1.3 % Neutrophils # (Auto) 2.7 TH/MM3 Lymphocytes # (Auto) 1.3 TH/MM3 Monocytes # (Auto) 0.3 TH/MM3 Eosinophils # (Auto) 0.2 TH/MM3 Basophils # (Auto) 0.1 TH/MM3 CBC Comment DIFF FINAL Differential Comment Sodium Level 133 MEQ/L Potassium Level 4.5 MEQ/L Chloride Level 100 MEQ/L Carbon Dioxide Level 22.3 MEQ/L Anion Gap 11 MEQ/L Blood Urea Nitrogen 41 MG/DL Creatinine 2.72 MG/DL Estimat Glomerular Filtration 17 ML/MIN Rate Random Glucose 101 MG/DL Calcium Level 8.7 MG/DL Total Bilirubin 0.2 MG/DL Aspartate Amino Transf 17 U/L (AST/SGOT) Alanine Aminotransferase 21 U/L (ALT/SGPT) Alkaline Phosphatase 85 U/L Troponin I LESS THAN 0.02 NG/ML Total Protein 7.0 GM/DL Albumin 3.4 GM/DL [facility] Medical Decision Making Medical Screen Exam Complete: Yes Emergency Medical Condition: Yes Interpretation(s) My review of EKG: Normal sinus rhythm at a rate of 64, left bundle branch block , leftward axis, no definite evidence of acute ischemia. Compared to previous EKG 10/08/16, no significant change. LABS: CBC remarkable for mild anemia. CMP remarkable for mildly elevated BUN/creatinine. Troponin negative. Chest x-ray: No evidence of acute cardio pulmonary disease. Differential Diagnosis Weakness, vasovagal episode, dehydration, arrhythmia, ACS, other Narrative Course Medical decision making This 67-year-old woman presents emergent part of the brief episode of feeling dizzy and lightheaded and near syncopal. She looks well now. Says she's had previous episodes before. Multiple chronic comorbidities. Doesn't really want him in the hospital. We'll check basic labs, UA, EKG, chest x-ray, and if no indication for hospitalization will discharge home for close outpatient follow- up. FINAL: Patient showed completely well now. Once be discharged. Unable to give a urine sample yet. She is due for an appointment with her doctor on Monday. We'll give her copies of her blood work here, later discharge. No urinary symptoms. Diagnosis Primary Impression: Near syncope Additional Instructions: Follow-up with her primary doctor in the next 2-4 days. Return to the emergency department for any new or worsening symptoms. Disposition: 01 DISCHARGE HOME Condition: Stable Zion Jiménez MD Mar 08, 2017 20:02
[2017-03-08 20:12] LABS: AUTOMATED NEUTROPHIL # 2.7 TH/MM3 (1.8-7.7); BASOPHIL # 0.1 TH/MM3 (0-0.2); BASOPHIL % 1.3 % (0.0-2.0); EOSINOPHIL # 0.2 TH/MM3 (0-0.4); EOSINOPHIL % 4.2 % (0.0-4.0); HEMATOCRIT 29.4 % (35.0-46.0); HEMO FLAGS DIFF FINAL; LYMPH % 28.2 % (9.0-44.0); LYMPHOCYTE # 1.3 TH/MM3 (1.0-4.8); MEAN CELL VOLUME 90.6 FL (80.0-100.0); MEAN CORPUSCULAR HEMOGLOBIN 30.5 PG (27.0-34.0); MEAN CORPUSCULAR HGB CONC 33.7 % (32.0-36.0); MONO % 7.5 % (0.0-8.0); NEUT % 58.8 % (16.0-70.0); PLATELET COUNT 265 TH/MM3 (150-450); RED BLOOD COUNT 3.24 MIL/MM3 (4.00-5.30); RED CELL DISTRIBUTION WIDTH 12.2 % (11.6-17.2); WHITE BLOOD COUNT 4.6 TH/MM3 (4.0-11.0)
[2017-03-08] MEDS ORDERED: SODIUM CHLORID 0.9% 500 ML INJ 500 ML IV ONE (20:15)
--- NOTE | 2017-03-08 20:19 | RADRPT ---
EXAM DATE/TIME: 03/08/2017 20:12 [facility] COMPARISON: CHEST PA & LAT, March 07, 2016, 18:28. INDICATIONS : Weakness, vomiting. MEDICAL HISTORY : Myocardial infarction. Congestive heart failure. Hypertension. SURGICAL HISTORY : None. ENCOUNTER: Initial ACUITY: 1 day PAIN SCORE: 0/10 LOCATION: chest FINDINGS: A single view of the chest demonstrates the lungs to be symmetrically aerated without evidence of mas s, infiltrate or effusion. The cardiomediastinal contours are unremarkable. Osseous structures are intact. CONCLUSION: No evidence of acute cardiopulmonary disease. Siddhartha Mercedes MD on March 08, 2017 at 20:17 Board Certified Radiologist. This report was verified electronically.
[2017-03-08 20:45] LABS: ALKALINE PHOSPHATASE 85 U/L (45-117); ALT (GPT) 21 U/L (10-53); TOTAL BILIRUBIN ADULT 0.2 MG/DL (0.2-1.0)
[2017-03-08 20:55] LABS: ANION GAP 11 MEQ/L (5-15); AST (GOT) 17 U/L (15-37); BICARBONATE 22.3 MEQ/L (21.0-32.0); BLOOD UREA NITROGEN 41 MG/DL (7-18); CHLORIDE 100 MEQ/L (98-107); GLOMERULAR FILTRATION RATE 17 ML/MIN (>89); POTASSIUM 4.5 MEQ/L (3.5-5.1); SODIUM (NA) 133 MEQ/L (136-145)
--- NOTE | 2017-03-09 15:30 | EKG ---
Date Performed: 03/08/2017 Time Performed: 20:03:13 PTAGE: 67 years EKG: Sinus rhythm MARKED LEFT AXIS DEVIATION LEFT BUNDLE BRANCH BLOCK ABNORMAL ECG Compared to prior tracing no signif icant change PREVIOUS TRACING : 10/08/2016 18.18 DOCTOR: Miguel Chavez Interpretating Date/Time 03/09/2017 15:29:08
== END 2017-03-08 21:25 | disposition home or self-care (01) ==
LOC: NEPE 19:33
DX: R55 Syncope and collapse (principal); I12.9 Hypertensive chronic kidney disease with stage 1 through stage 4 chronic kidney disease, or unspecified chronic kidney disease; N18.9 Chronic kidney disease, unspecified; I25.2 Old myocardial infarction; I25.10 Atherosclerotic heart disease of native coronary artery without angina pectoris; J44.9 Chronic obstructive pulmonary disease, unspecified; F17.200 Nicotine dependence, unspecified, uncomplicated
CPT/HCPCS: 71010; 80053; 84484; 85025; 93005; 96360; 99285; J7040

== ENCOUNTER 2018-01-14 14:41 | Emergency (ER) | payer OTHER ==
[~2018-01-14 14:41] MED LIST changes: +ASPI-183 PO; -ASPI325T PO; -PATI1POW PO; -PRED20 PO; +VITA100064 PO
[2018-01-14 14:47] VITALS: BP 188/58; PULSE 74; RESP 22; TEMP 98.6; O2SAT 95
[2018-01-14] MEDS ORDERED: NITR0.4S SL (14:49)
--- NOTE | 2018-01-14 14:59 | PD ---
HPI Chief Complaint: Chest Pain Time Seen by Provider: 14:54 Travel History International Travel<30 days: No Contact w/Intl Traveler<30days: No Traveled to known affect area: No History of Present Illness HPI Patient presents with complaints of chest heaviness. States it radiates into her neck left and arm. States she is short of breath with diaphoresis. Non- smoker with history of tobacco use. Nondiabetic. History of coronary artery disease with previous [place], CHF, COPD, renal failure, carotid stenosis. Unknown family history of cardiac disease. States she has had a cold for 2 days with congestion and productive cough. Denies nausea vomiting diarrhea or fever. No aggravating or alleviating factors. Discomfort is 4-5 out of 10. PFSH Past Medical History Hx Anticoagulant Therapy: Yes (325MG ASA) Arthritis: Yes Autoimmune Disease: No Blood Disorders: No Anxiety: No Depression: Yes Cancer: No Cardiovascular Problems: Yes High Cholesterol: Yes Chemotherapy: No Congestive Heart Failure: Yes COPD: Yes Diminished Hearing: No Endocrine: No Genitourinary: Yes (kidney failure stage 4) Hypertension: Yes Immune Disorder: No Musculoskeletal: Yes Neurologic: No Psychiatric: No Reproductive: No Respiratory: Yes Immunizations Current: Yes Myocardial Infarction: Yes (december 30, 2014) Radiation Therapy: No Renal Failure: Yes Influenza Vaccination: Yes ?: Not Menopausal: Yes : 3 Para: 3 Ovarian Cysts: Yes Past Surgical History Gynecologic Surgery: Yes (OVARIES REMOVED) Other Surgery: Yes Social History Alcohol Use: No Tobacco Use: Yes (09/26 ppd) Substance Use: No Allergies-Medications (Allergen,Severity, Reaction): Coded Allergies: No Known Allergies (Verified Adverse Reaction, Unknown, 01/14/18) Reported Meds & Prescriptions Reported Meds & Active Scripts Active Reported Nitrostat SL (Nitroglycerin) 0.4 Mg Subl 0.4 Mg SL DIRECTED PRN 1 tablet under the tongue as needed for chest pain. Repeat every 5 minutes for a total of 3 DOSES or call 911 if NO relief. Vitamin D3 (Cholecalciferol) 1,000 Unit Tab 5,000 Units PO DAILY Albuterol Neb (Albuterol Sulfate) 2.5 Mg/3 Ml Neb 2.5 Mg NEB QID NEB Aspirin 325 Mg Tab 325 Mg PO DAILY Calcitriol 0.25 Mcg Cap 0.25 Mcg PO DAILY Atorvastatin (Atorvastatin Calcium) 40 Mg Tab 40 Mg PO HS Carvedilol 25 Mg Tab 25 Mg PO BID Review of Systems General / Constitutional: No: Fever Eyes: No: Visual changes HENT: No: Headaches Cardiovascular: Positive: Chest Pain or Discomfort Respiratory: Positive: Cough, Shortness of Breath, Sneezing Gastrointestinal: No: Abdominal Pain Genitourinary: No: Dysuria Musculoskeletal: No: Pain Skin: No Rash Neurologic: No: Weakness Psychiatric: No: Depression Endocrine: No: Polydipsia Hematologic/Lymphatic: No: Easy Bruising Physical Exam Narrative GENERAL: Well-nourished, well-developed patient. SKIN: Focused skin assessment warm/dry. HEAD: Normocephalic. EYES: No scleral icterus. No injection or drainage. NECK: Supple, trachea midline. No JVD or lymphadenopathy. CARDIOVASCULAR: Regular rate and rhythm without murmurs, gallops, or rubs. RESPIRATORY: Decreased breath sounds in all cervantes, mildly coarse bilateral bases. No accessory muscle use. GASTROINTESTINAL: Abdomen soft, non-tender, nondistended. MUSCULOSKELETAL: No cyanosis, or edema. BACK: Nontender without obvious deformity. No CVA tenderness. Data Data Last Documented VS Vital Signs Date Time Temp Pulse Resp B/P (MAP) Pulse Ox O2 Delivery O2 Flow Rate FiO2 01/14/18 15:41 75 20 123/86 (98) 98 Room Air 01/14/18 14:47 98.6 Orders Orders Electrocardiogram (01/14/18 14:55) Ckmb (Isoenzyme) Profile (01/14/18 14:55) Complete Blood Count With Diff (01/14/18 14:55) Comprehensive Metabolic Panel (01/14/18 14:55) Magnesium (Mg) (01/14/18 14:55) Prothrombin Time / Inr (Pt) (01/14/18 14:55) Act Partial Throm Time (Ptt) (01/14/18 14:55) Troponin I (01/14/18 14:55) Chest, Single Ap (01/14/18 14:55) Ecg Monitoring (01/14/18 14:55) Bilateral Bp Monitoring (01/14/18 14:55) Iv Access Insert/Monitor (01/14/18 14:55) Oximetry (01/14/18 14:55) Oxygen Administration (01/14/18 14:55) Sodium Chloride 0.9% Flush (Ns Flush) (01/14/18 15:00) B-Type Natriuretic Peptide (01/14/18 14:59) Labs Laboratory Tests Test 01/14/18 15:00 White Blood Count 4.3 TH/MM3 Red Blood Count 3.33 MIL/MM3 Hemoglobin 10.4 GM/DL Hematocrit 30.7 % Mean Corpuscular Volume 92.1 FL Mean Corpuscular Hemoglobin 31.1 PG Mean Corpuscular Hemoglobin Concent 33.8 % Red Cell Distribution Width 11.5 % Platelet Count 262 TH/MM3 Mean Platelet Volume 7.2 FL Neutrophils (%) (Auto) 61.4 % Lymphocytes (%) (Auto) 22.3 % Monocytes (%) (Auto) 12.1 % Eosinophils (%) (Auto) 3.5 % Basophils (%) (Auto) 0.7 % Neutrophils # (Auto) 2.6 TH/MM3 Lymphocytes # (Auto) 1.0 TH/MM3 Monocytes # (Auto) 0.5 TH/MM3 Eosinophils # (Auto) 0.2 TH/MM3 Basophils # (Auto) 0.0 TH/MM3 CBC Comment DIFF FINAL Differential Comment Prothrombin Time 9.4 SEC Prothromb Time International Ratio 0.9 RATIO Activated Partial Thromboplast Time 24.0 SEC Blood Urea Nitrogen 35 MG/DL Creatinine 2.90 MG/DL Random Glucose 89 MG/DL Total Protein 8.1 GM/DL Albumin 3.5 GM/DL Calcium Level 8.6 MG/DL Magnesium Level 2.4 MG/DL Alkaline Phosphatase 108 U/L Aspartate Amino Transf (AST/SGOT) 25 U/L Alanine Aminotransferase (ALT/SGPT) 19 U/L Total Bilirubin 0.3 MG/DL Sodium Level 135 MEQ/L Potassium Level 4.6 MEQ/L Chloride Level 105 MEQ/L Carbon Dioxide Level 23.2 MEQ/L Anion Gap 7 MEQ/L Estimat Glomerular Filtration Rate 16 ML/MIN Total Creatine Kinase 81 U/L Troponin I LESS THAN 0.02 NG/ML B-Type Natriuretic Peptide 44 PG/ML MDM Medical Decision Making Medical Screen Exam Complete: Yes Emergency Medical Condition: Yes Differential Diagnosis COPD exacerbation, ACS, viral syndrome, CHF exacerbation Narrative Course Assessment plan discussed with patient at bedside. EKG reveals sinus rhythm rate of 78 left bundle branch block. Labs reviewed, anemia noted, renal function noted. Last 72 hours Impressions Chest X-Ray 01/14/18 7890 Signed Impressions: Service Date/Time: Sunday, January 14, 2018 14:59 - CONCLUSION: No acute cardiopulmonary process. Jaleel Lou MD Diagnosis Primary Impression: COPD exacerbation Patient Instructions: General Instructions Additional Instructions: Rest fluids and Motrin or Tylenol. Follow-up with PCP. Return to the emergency room with any onset of new symptoms. Med/Other Pt SpecificInfo: Prescription(s) given Scripts Prednisone (21) 10 mg tab Dose Pack (Prednisone (21) 10 mg tab Dose Pack) 10 Mg Pack 10 MG PO DIRECTED for Inflammation, #1 DSPK 0 Refills Prov: Suhail Stanley MD 01/14/18 Azithromycin (Zithromax) 500 Mg Tab 500 MG PO DAILY for Infection, #7 TAB 0 Refills Prov: Suhail Stanley MD 01/14/18 Disposition: 01 DISCHARGE HOME Condition: Good Suhail Stanley MD Jan 14, 2018 14:59
[2018-01-14] MEDS ORDERED: SODIUM CHLORIDE 0.9% FLUSH 10 ML FLUSH IVF PRN (15:00)
[2018-01-14 15:13] LABS: AUTOMATED NEUTROPHIL # 2.6 TH/MM3 (1.8-7.7); BASOPHIL % 0.7 % (0.0-2.0); EOSINOPHIL # 0.2 TH/MM3 (0-0.4); EOSINOPHIL % 3.5 % (0.0-4.0); HEMATOCRIT 30.7 % (35.0-46.0); HEMOGLOBIN 10.4 GM/DL (11.6-15.3); LYMPH % 22.3 % (9.0-44.0); MEAN CELL VOLUME 92.1 FL (80.0-100.0); MEAN CORPUSCULAR HEMOGLOBIN 31.1 PG (27.0-34.0); MEAN CORPUSCULAR HGB CONC 33.8 % (32.0-36.0); MEAN PLATELET VOLUME 7.2 FL (7.0-11.0); MONO % 12.1 % (0.0-8.0); MONOCYTE # 0.5 TH/MM3 (0-0.9); NEUT % 61.4 % (16.0-70.0); PLATELET COUNT 262 TH/MM3 (150-450); RED BLOOD COUNT 3.33 MIL/MM3 (4.00-5.30); RED CELL DISTRIBUTION WIDTH 11.5 % (11.6-17.2); WHITE BLOOD COUNT 4.3 TH/MM3 (4.0-11.0)
[2018-01-14 15:21] LABS: CHLORIDE 105 MEQ/L (98-107); SODIUM (NA) 135 MEQ/L (136-145)
[2018-01-14 15:24] LABS: ALBUMIN 3.5 GM/DL (3.4-5.0); BLOOD UREA NITROGEN 35 MG/DL (7-18); CALCIUM 8.6 MG/DL (8.5-10.1); GLUCOSE,RANDOM 89 MG/DL (74-106); MAGNESIUM 2.4 MG/DL (1.5-2.5)
[2018-01-14 15:26] LABS: INTERNATIONAL NORMALIZED RATIO 0.9 RATIO; PROTHROMBIN TIME - PATIENT 9.4 SEC (9.8-11.6)
[2018-01-14 15:27] LABS: ALT (GPT) 19 U/L (10-53); AST (GOT) 25 U/L (15-37); BICARBONATE 23.2 MEQ/L (21.0-32.0); GLOMERULAR FILTRATION RATE 16 ML/MIN (>89)
[2018-01-14 15:29] LABS: TOTAL BILIRUBIN ADULT 0.3 MG/DL (0.2-1.0); TOTAL PROTEIN 8.1 GM/DL (6.4-8.2)
[2018-01-14 15:30] LABS: ALKALINE PHOSPHATASE 108 U/L (45-117)
--- NOTE | 2018-01-14 15:30 | RADRPT ---
EXAM DATE/TIME: 01/14/2018 14:59 [facility] COMPARISON: CHEST SINGLE AP, March 08, 2017, 20:12. INDICATIONS : Chest pain, short of breath MEDICAL HISTORY : Myocardial infarction. Chronic obstructive pulmonary disease. Congestive heart failure. SURGICAL HISTORY : None. ENCOUNTER: Initial ACUITY: 2 days PAIN SCORE: 5/10 LOCATION: Bilateral cranial FINDINGS: A single view of the chest demonstrates the lungs to be symmetrically aerated without evidence of mas s, infiltrate or effusion. The cardiomediastinal contours are unremarkable. Osseous structures are intact. CONCLUSION: No acute cardiopulmonary process. Jaleel Lou MD on January 14, 2018 at 15:28 Board Certified Radiologist. This report was verified electronically.
[2018-01-14 15:32] LABS: TROPONIN I LESS THAN 0.02 NG/ML (0.02-0.05)
[2018-01-14 15:39] VITALS: RESP 20; O2SAT 98
[2018-01-14 15:40] VITALS: BP_SYST 123; BP_SYST 124; BP_DIAS 84; BP_DIAS 86; PULSE 75
[2018-01-14 15:41] VITALS: BP 123/86; PULSE 75; RESP 20; O2SAT 98
[2018-01-14] MEDS ORDERED: ZITH500T PO (15:47)
[2018-01-14] MEDS ORDERED: PRED10PA PO (15:47)
--- NOTE | 2018-01-14 23:58 | EKG ---
Date Performed: 01/14/2018 Time Performed: 14:46:22 PTAGE: 68 years EKG: Sinus rhythm MARKED LEFT AXIS DEVIATION LEFT BUNDLE BRANCH BLOCK ABNORMAL ECG INTERPRETATION BASED ON A DEFAULT A GE OF 40 YEARS PREVIOUS TRACING : 03/08/2017 20.03 Since the previous tracing, no significant change not ed DOCTOR: Francisco Javier Salazar Interpretating Date/Time 01/14/2018 23:57:30
== END 2018-01-14 15:55 | disposition home or self-care (01) ==
LOC: PHED 14:41
DX: J44.1 Chronic obstructive pulmonary disease with (acute) exacerbation (principal); I44.7 Left bundle-branch block, unspecified; R94.31 Abnormal electrocardiogram [ECG] [EKG]; I25.10 Atherosclerotic heart disease of native coronary artery without angina pectoris; I25.2 Old myocardial infarction; I50.9 Heart failure, unspecified; J44.9 Chronic obstructive pulmonary disease, unspecified; I12.9 Hypertensive chronic kidney disease with stage 1 through stage 4 chronic kidney disease, or unspecified chronic kidney disease; N18.4 Chronic kidney disease, stage 4 (severe)
CPT/HCPCS: 71045; 80053; 82550; 83735; 83880; 84484; 85025; 85610; 85730; 93005; 99285